=== PATIENT | male | born 1965 | race Caucasian/White ===

== ENCOUNTER 2020-06-12 16:24 | Inpatient (IN) | payer BC ==
[~2020-06-12] VITALS: Ht 182.9 cm; Wt 74.4 kg
[2020-06-12 16:26] VITALS: BP_SYST 159
[2020-06-12] MEDS ORDERED: levETIRAcetam 1,000 MG IV BAG 100 ML IV ONE (16:45)
[2020-06-12] MEDS ORDERED: LORazepam 2 MG/ML VIAL IVP ONE (16:45)
[2020-06-12 16:52] LABS: BASOPHILS % (AUTO) 0.6 % (0.0-2.0); EOSINOPHILS % (AUTO) 0.1 % (0.0-4.0); HEMATOCRIT 33.9 % (36-54); HEMOGLOBIN 11.2 g/dL (14.0-18.0); LYMPHOCYTES # (AUTO) 0.8 K/uL (1.0-5.5); LYMPHOCYTES % (AUTO) 11.4 % (20.5-51.5); MEAN CORPUSCULAR HEMOGLOBIN 29 pg (27-31); MEAN CORPUSCULAR HGB CONC 33 % (32-36); MEAN CORPUSCULAR VOLUME 88 fL (79.0-98.0); MONOCYTES # (AUTO) 0.2 K/uL (0.0-1.0); MONOCYTES % (AUTO) 2.9 % (1.7-9.3); NEUTROPHILS # (AUTO) 5.8 K/uL (1.8-7.7); PLATELET COUNT (AUTO) 172 K/uL (130-430); RED BLOOD CELL COUNT(AUTO) 3.85 MIL/uL (4.2-6.2); RED CELL DISTRIBUTION WIDTH 14.7 % (9.0-15.0); WHITE BLOOD COUNT (AUTO) 6.8 K/uL (4.8-10.8)
[2020-06-12] MEDS ORDERED: ERGO500020 PO (17:02)
[2020-06-12] MEDS ORDERED: MYCO500T PO (17:02)
[2020-06-12] MEDS ORDERED: DOCU-144 PO (17:02)
[2020-06-12] MEDS ORDERED: TACR1CAP7 PO (17:02)
[2020-06-12] MEDS ORDERED: THIA50TA10 PO (17:02)
[2020-06-12] MEDS ORDERED: NOR10 PO (17:02)
[2020-06-12] MEDS ORDERED: magnesium protein PO (17:02)
[2020-06-12] MEDS ORDERED: TACR0.5C PO (17:02)
[2020-06-12] MEDS ORDERED: LACO100T2 PO (17:02)
[2020-06-12] MEDS ORDERED: PRED5TAB PO (17:02)
[2020-06-12] MEDS ORDERED: URSO300C24 PO (17:02)
[2020-06-12] MEDS ORDERED: EVER1TAB PO (17:02)
[2020-06-12] MEDS ORDERED: MIDAZOLAM NS (17:02)
[2020-06-12] MEDS ORDERED: [UNRECOGNIZED DRUG - OTHER] (17:02)
[2020-06-12] MEDS ORDERED: OMEP40CA33 PO (17:02)
[2020-06-12] MEDS ORDERED: LEVE1000 PO (17:02)
[2020-06-12] MEDS ORDERED: METO25TA3 PO (17:02)
[2020-06-12] MEDS ORDERED: OSCD500 PO (17:02)
[2020-06-12] MEDS ORDERED: NEPH PO (17:02)
[2020-06-12 17:32] LABS: CALCIUM 9.5 mg/dL (8.4-11.0); CREATININE 2.23 mg/dL (0.55-1.30)
[2020-06-12 17:36] LABS: TOTAL BILIRUBIN 0.6 mg/dL (0.0-1.0)
[2020-06-12] MEDS ORDERED: LORazepam 2 MG/ML VIAL IVP PRN (19:30)
[2020-06-12] MEDS: LR 1,000 ML IV SCH (21:10)
[2020-06-12] MEDS: MYCOPHENOLATE MOFETIL 250 MG CAPSULE PO SCH (22:30)
[2020-06-12] MEDS ORDERED: EVEROLIMUS 2 MG PO SCH (22:30)
[2020-06-12] MEDS: URSODIOL 300 MG CAPSULE PO SCH (22:30)
[2020-06-12 23:03] VITALS: BP_SYST 162
[2020-06-12] MEDS: levETIRAcetam 500 MG TABLET PO SCH (23:41)
[2020-06-13 00:28] LABS: BILIRUBIN,URINE NEGATIVE (NEGATIVE); BLOOD, URINE NEGATIVE (NEGATIVE); CLARITY/URINE CLEAR (CLEAR); COLOR,URINE YELLOW (YELLOW); GLUCOSE,URINE NEGATIVE (NEGATIVE); KETONES,URINE NEGATIVE (NEGATIVE); LEUKOCYTE ESTERASE ,URINE NEGATIVE (NEGATIVE); NITRITE, URINE NEGATIVE (NEGATIVE); PROTEIN URINE NEGATIVE (NEGATIVE); UROBILINOGEN,URINE 0.2 (0.2-1.0)
[2020-06-13 00:43] LABS: BARBITURATE, URINE NEGATIVE (NEG <=200); BENZODIAZEPINE, URINE POSITIVE (NEG <=150); CANNABINOID, URINE NEGATIVE (NEG <=50); COCAINE, URINE NEGATIVE (NEG <=150); METHAMPHETAMINES SCREEN,URINE NEGATIVE (NEG <=500); OPIATE, URINE NEGATIVE (NEG <=100); PHENCYCLIDINE SCREEN,URINE NEGATIVE (NEG <=25); UR TRICYCLIC ANTIDEPRESSANTS NEGATIVE (NEG <=300); URINE AMPHETAMINE NEGATIVE (NEG <=500); URINE METHADONE NEGATIVE (NEG <=200); URINE OXYCODONE SCREEN NEGATIVE (NEG <=100); URINE PROPOXYPHENE SCREEN NEGATIVE (NEG <=300)
[2020-06-13] MEDS: LR 1,000 ML IV SCH (05:30)
[2020-06-13] MEDS ORDERED: PANTOPRAZOLE SODIUM 40 MG TAB PO SCH (07:00)
[2020-06-13] MEDS: levETIRAcetam 500 MG TABLET PO SCH (08:36)
[2020-06-13] MEDS: URSODIOL 300 MG CAPSULE PO SCH (08:38)
[2020-06-13] MEDS: MYCOPHENOLATE MOFETIL 250 MG CAPSULE PO SCH (08:39)
[2020-06-13] MEDS ORDERED: PREDNISONE 5 MG TABLET PO SCH (09:00)
[2020-06-13] MEDS ORDERED: NEPHROVITE, (FOLIC ACID/VITAMIN B COMP W-C 1 TAB) PO SCH (09:00)
[2020-06-13] MEDS ORDERED: CALCIUM CARBONATE/VITAMIN D3 1 TAB TABLET PO SCH (09:00)
[2020-06-13] MEDS ORDERED: LACOSAMIDE 100 MG TABLET PO SCH (09:00)
[2020-06-13] MEDS ORDERED: DOCUSATE SODIUM 100 MG CAPSULE PO SCH (09:00)
[2020-06-13] MEDS ORDERED: THIAMINE HCL 100 MG TABLET PO SCH (09:00)
[2020-06-13] MEDS ORDERED: METOPROLOL SUCCINATE 25 MG TAB.SR.24H (TOPROL XL) PO SCH (09:00)
[2020-06-13] MEDS ORDERED: TACROLIMUS ANHYDROUS 1 MG CAPSULE (PROGRAF) PO SCH (09:00)
[2020-06-13] MEDS ORDERED: OMEPRAZOLE Non-Formulary 20 MG CAPSULE.DR PO SCH (09:00)
[2020-06-13] MEDS ORDERED: amLODIPine BESYLATE 10 MG TABLET PO SCH (09:00)
[2020-06-13 09:13] LABS: BASOPHILS # (AUTO) 0.1 K/uL (0.0-0.2); BASOPHILS % (AUTO) 1.3 % (0.0-2.0); EOSINOPHILS # (AUTO) 0.1 K/uL (0.0-0.4); EOSINOPHILS % (AUTO) 1.1 % (0.0-4.0); HEMATOCRIT 32.3 % (36-54); LYMPHOCYTES # (AUTO) 1.7 K/uL (1.0-5.5); LYMPHOCYTES % (AUTO) 35.3 % (20.5-51.5); MEAN CORPUSCULAR HEMOGLOBIN 29 pg (27-31); MEAN CORPUSCULAR HGB CONC 34 % (32-36); MEAN CORPUSCULAR VOLUME 85 fL (79.0-98.0); MONOCYTES # (AUTO) 0.3 K/uL (0.0-1.0); MONOCYTES % (AUTO) 6.5 % (1.7-9.3); NEUTROPHILS # (AUTO) 2.7 K/uL (1.8-7.7); NEUTROPHILS % (AUTO) 55.8 % (40.0-70.0); PLATELET COUNT (AUTO) 134 K/uL (130-430); RED CELL DISTRIBUTION WIDTH 14.4 % (9.0-15.0); WHITE BLOOD COUNT (AUTO) 4.9 K/uL (4.8-10.8)
[2020-06-13 09:24] LABS: ALBUMIN 3.3 g/dL (3.4-4.8); CALCIUM 9.1 mg/dL (8.4-11.0); CREATININE 1.74 mg/dL (0.55-1.30); POTASSIUM 3.6 mmol/L (3.5-5.1); TOTAL BILIRUBIN 0.7 mg/dL (0.0-1.0)
[2020-06-13 10:24] VITALS: BP_SYST 158
[2020-06-13 12:16] VITALS: BP_SYST 141
[2020-06-13 13:33] VITALS: BP_SYST 158
[2020-06-13] MEDS ORDERED: TACROLIMUS ANHYDROUS 0.5 MG CAPSULE (PROGRAF) PO SCH (21:00)
== END 2020-06-13 14:30 | disposition home or self-care (01) | DRG 100 ==
LOC: SED 16:24 → EDBD 16:24 → STU 19:23
PROVIDERS: ADMIT Internal Medicine; ATTEND Internal Medicine
DX: G40.801 Other epilepsy, not intractable, with status epilepticus (principal); N17.0 Acute kidney failure with tubular necrosis; B17.9 Acute viral hepatitis, unspecified; E44.1 Mild protein-calorie malnutrition; Z94.4 Liver transplant status; K21.9 Gastro-esophageal reflux disease without esophagitis; R79.89 Other specified abnormal findings of blood chemistry; E86.0 Dehydration; I12.9 Hypertensive chronic kidney disease with stage 1 through stage 4 chronic kidney disease, or unspecified chronic kidney disease; N18.9 Chronic kidney disease, unspecified; D63.8 Anemia in other chronic diseases classified elsewhere; Z88.6 Allergy status to analgesic agent; Z79.899 Other long term (current) drug therapy; Z86.73 Personal history of transient ischemic attack (TIA), and cerebral infarction without residual deficits
CPT/HCPCS: 36415; 70450-TC; 80053; 80307; 81003; 85025; 93005; G0378; J1953; J7120; J7507; J7512; J7517

== ENCOUNTER 2020-11-16 23:05 | Inpatient (IN) | payer BC, SELFPAY ==
[~2020-11-16] VITALS: Ht 185.4 cm; Wt 82.6 kg
[2020-11-16 23:05] VITALS: BP_SYST 132
[~2020-11-16 23:05] MED LIST: DOCU-144 PO; ERGO500020 PO; EVER1TAB PO; LACO100T2 PO; LEVE1000 PO; METO25TA3 PO; MIDAZOLAM NS; MYCO500T PO; NEPH PO; NOR10 PO; OMEP40CA13 PO; OSCD500 PO; PRED5TAB PO; TACR0.5C PO; TACR1CAP7 PO; THIA50TA10 PO; URSO300C24 PO; [UNRECOGNIZED DRUG - OTHER]; magnesium protein PO
--- NOTE | 2020-11-16 23:05 | NUR ---
Placed in room 6. Placed on teletypesetter monitor, blood pressure machine and pulse oximeter. To gown for exam. Side rails up.
--- NOTE | 2020-11-16 23:05 | NUR ---
Seizure precautions in place. Seizure pads applied to gurney. Side rails up.
--- NOTE | 2020-11-16 23:06 | NUR ---
Patient was BIBA from home c/o witnessed tonic clonic seizure at home by . 911 was called and per EMS, witnessed focal seizure, looking to left and blinking. Pt is post ictal at this time. VSS. Blood sugar 109.
--- NOTE | 2020-11-16 23:22 | NUR ---
ER Dr. Avelar at bedside examining patient.
--- NOTE | 2020-11-16 23:35 | NUR ---
# 14 FR In and Out catheter with use of sterile technique. Immediate return of 300 ml yellow urine noted. Urine sample collected and sent to lab. Pt tolerated procedure 0. Patient unable to toilet self.
--- NOTE | 2020-11-16 23:36 | NUR ---
patient was able to speak; pt has scrambled communication. Attempted to reorient patient to person, time, and situation. ER MD made aware.
[2020-11-16 23:57] LABS: BILIRUBIN,URINE NEGATIVE (NEGATIVE); BLOOD, URINE NEGATIVE (NEGATIVE); CLARITY/URINE CLEAR (CLEAR); COLOR,URINE YELLOW (YELLOW); GLUCOSE,URINE NEGATIVE (NEGATIVE); KETONES,URINE NEGATIVE (NEGATIVE); LEUKOCYTE ESTERASE ,URINE NEGATIVE (NEGATIVE); NITRITE, URINE NEGATIVE (NEGATIVE); PROTEIN URINE NEGATIVE (NEGATIVE); UROBILINOGEN,URINE 0.2 (0.2-1.0)
[2020-11-17 00:06] LABS: CREATININE 2.04 mg/dL (0.55-1.30); POTASSIUM 3.7 mmol/L (3.5-5.1)
[2020-11-17 00:07] LABS: BASOPHILS # (AUTO) 0.1 K/uL (0.0-0.2); BASOPHILS % (AUTO) 1.1 % (0.0-2.0); EOSINOPHILS % (AUTO) 0.3 % (0.0-4.0); HEMATOCRIT 39.5 % (36-54); HEMOGLOBIN 13.6 g/dL (14.0-18.0); LYMPHOCYTES # (AUTO) 2.9 K/uL (1.0-5.5); LYMPHOCYTES % (AUTO) 36.6 % (20.5-51.5); MEAN CORPUSCULAR HEMOGLOBIN 28 pg (27-31); MEAN CORPUSCULAR HGB CONC 34 % (32-36); MEAN CORPUSCULAR VOLUME 82 fL (79.0-98.0); MONOCYTES # (AUTO) 0.5 K/uL (0.0-1.0); MONOCYTES % (AUTO) 6.5 % (1.7-9.3); NEUTROPHILS # (AUTO) 4.3 K/uL (1.8-7.7); NEUTROPHILS % (AUTO) 55.5 % (40.0-70.0); PLATELET COUNT (AUTO) 220 K/uL (130-430); RED BLOOD CELL COUNT(AUTO) 4.81 MIL/uL (4.2-6.2); RED CELL DISTRIBUTION WIDTH 14.4 % (9.0-15.0); WHITE BLOOD COUNT (AUTO) 7.8 K/uL (4.8-10.8)
[2020-11-17 00:12] LABS: ALBUMIN 4.4 g/dL (3.4-4.8); TOTAL BILIRUBIN 0.4 mg/dL (0.0-1.0)
--- NOTE | 2020-11-17 02:20 | NUR ---
Patient sleeping comfortably in bed. NO acute distress, will continue to monitor.
[2020-11-17] MEDS ORDERED: LORazepam 2 MG/ML VIAL ONE (02:36)
--- NOTE | 2020-11-17 02:37 | NUR ---
Witnessed patient having seizure approximately 3 minutes long. Called Charge nurse. Overrided 1mg of Ativan and administered IVP. Pt was placed on NRB at 15L. trauma noted to tongue. ER MD made aware.
--- NOTE | 2020-11-17 03:29 | NUR ---
Patient to CT in stable condition.
[2020-11-17] MEDS ORDERED: LORazepam 2 MG/ML VIAL IVP ONE (03:30)
--- NOTE | 2020-11-17 03:55 | NUR ---
Patient returned from CT in stable condition.
--- NOTE | 2020-11-17 03:57 | NUR ---
Spoke with , Tracey, in regards to patient's status. was given update on patient.
--- NOTE | 2020-11-17 05:26 | NUR ---
patient was cleaned and turned. Pt speaking gibberish. ER made aware.
--- NOTE | 2020-11-17 07:03 | NUR ---
Report recieved from GERALD Aguiar for continuation of care.
--- NOTE | 2020-11-17 07:03 | NUR ---
Report given to GERALD Dominguez. All care endorsed.
[2020-11-17] MEDS ORDERED: [UNRECOGNIZED DRUG - CODE] PO (07:06)
[2020-11-17] MEDS ORDERED: CEL250 PO (07:07)
[2020-11-17] MEDS ORDERED: PRED5TAB PO (07:08)
[2020-11-17] MEDS ORDERED: TACR0.5C PO (07:09)
[2020-11-17] MEDS ORDERED: TACR1CAP2 PO (07:09)
[2020-11-17] MEDS ORDERED: NOR10 PO (07:10)
[2020-11-17] MEDS ORDERED: CYCL-10 PO (07:11)
[2020-11-17] MEDS ORDERED: LISI-600 PO (07:13)
[2020-11-17] MEDS ORDERED: METO25TA3 PO (07:14)
[2020-11-17] MEDS ORDERED: FOLI0.8T2 PO ×2 (07:15→07:22)
--- NOTE | 2020-11-17 07:16 | NUR ---
Patient is able to answer questions correctly, but slowly. He has not complaints at this time.
[2020-11-17] MEDS ORDERED: THIA250T3 PO (07:17)
[2020-11-17] MEDS ORDERED: TRAM50TA2 PO (07:18)
[2020-11-17] MEDS ORDERED: URSO300C24 PO (07:19)
[2020-11-17] MEDS ORDERED: LACO150T2 PO (07:19)
--- NOTE | 2020-11-17 07:34 | NUR ---
Patient will be admitted to care of Dr. Toro. Admitted to telemetry unit. Waiting for room assignment. Belongings list completed. Complete and up to date summary report printed. SBAR report to be given at bedside with opportunity for questions.
[2020-11-17 07:47] LABS: ACETAMINOPHEN < 1 ug/mL (1-30); ALCOHOL, BLOOD < 3 mg/dL (<10)
[2020-11-17] MEDS: NACL 0.9% 1,000 ML IV SCH ×2 (07:55→21:07)
[2020-11-17] MEDS ORDERED: traMADol HCL HCL 50 MG TABLET (ULTRAM) PO PRN (10:30)
[2020-11-17] MEDS ORDERED: TACROLIMUS ANHYDROUS 0.5 MG CAPSULE (PROGRAF) PO SCH (10:30)
[2020-11-17] MEDS ORDERED: CYCLOBENZAPRINE HCL 10 MG TABLET (FLEXERIL) PO PRN (10:30)
--- NOTE | 2020-11-17 11:57 | NUR ---
DR HUGGINS AWARE OF ELEVATED TEMP. ORDERS RECEIVED
--- NOTE | 2020-11-17 12:05 | NUR ---
CALM, ALERT, RESP UNLABORED, SKIN WARM AND DRY. STATED FEELING BETTTER, TOLERATING PO WELL
--- NOTE | 2020-11-17 12:11 | NUR ---
Pt moved to hallway bed, tele and SpO2 monitoring in placed. No acute distress.
--- NOTE | 2020-11-17 12:58 | NUR ---
PONCHO TO ASSUEM CARE, CALM, ALERT, RESP UNLABORED, SKIN WARM AND DRY. CLEAR MENTATION AND SPEECH. C/O KNEE PAIN X 2 DAYS X-RAY, LABS COMPLETED
--- NOTE | 2020-11-17 14:06 | NUR ---
Contact Information: Please call Goyo Kirk at with updates.
[2020-11-17] MEDS ORDERED: [UNRECOGNIZED DRUG - OTHER] PO SCH (15:00)
--- NOTE | 2020-11-17 15:29 | NUR ---
Report given to GERALD Winter for continuation of care.
--- NOTE | 2020-11-17 15:38 | NUR ---
PONCHO TO ASSUME CARE, CALM, ALERT, SEIZURE PADS IN PLACE, NO DISTRESS. RESP UNLABORED.
[2020-11-17] MEDS: ursodioL 300 MG CAPSULE PO SCH ×2 (16:24→21:00)
--- NOTE | 2020-11-17 16:28 | NUR ---
SR NO ECTOPY, RESP UNLABORED, TOLERATING PO WELL
--- NOTE | 2020-11-17 19:30 | NUR ---
SLEEPING, RESP UNLABORED, SKIN WARM AND DRY. COMMUNICATES CLEARLY NORMOTENSIVE, VSS.
[2020-11-17] MEDS: TACROLIMUS ANHYDROUS 1 MG CAPSULE (PROGRAF) PO SCH (21:06)
[2020-11-17] MEDS: DOCUSATE SODIUM 100 MG CAPSULE PO SCH (21:06)
[2020-11-17] MEDS: levETIRAcetam 500 MG TABLET PO SCH (21:07)
--- NOTE | 2020-11-17 21:58 | NUR ---
Patient will be admitted to care of . Admitted to unit. Will go to room . Belongings list completed. Complete and up to date summary report printed. SBAR report to be given at bedside with opportunity for questions.
--- NOTE | 2020-11-17 22:30 | NUR ---
ADMIT NOTE Received pt from ER to the floor with a diagnosis of uncontrolled seizures, persistent altered mental status . Admission process initiated. patient oriented to pain management, safety and call light-teach back done.
[2020-11-17 22:40] VITALS: BP_SYST 149
[2020-11-17 23:11] LABS: BARBITURATE, URINE NEGATIVE (NEG <=200); BENZODIAZEPINE, URINE NEGATIVE (NEG <=150); CANNABINOID, URINE NEGATIVE (NEG <=50); COCAINE, URINE NEGATIVE (NEG <=150); METHAMPHETAMINES SCREEN,URINE NEGATIVE (NEG <=500); OPIATE, URINE NEGATIVE (NEG <=100); PHENCYCLIDINE SCREEN,URINE NEGATIVE (NEG <=25); UR TRICYCLIC ANTIDEPRESSANTS NEGATIVE (NEG <=300); URINE AMPHETAMINE NEGATIVE (NEG <=500); URINE METHADONE NEGATIVE (NEG <=200); URINE OXYCODONE SCREEN NEGATIVE (NEG <=100); URINE PROPOXYPHENE SCREEN NEGATIVE (NEG <=300)
--- NOTE | 2020-11-17 23:50 | NUR ---
PAGED PAGED DOCTOR HUGGINS FOR ORDERS
--- NOTE | 2020-11-17 23:54 | NUR ---
SPOKE WITH DR. HUGGINS FOR DIET ORDERS SHE ADVISED TO CHANGE PATIENT FROM NPO TO SOFT DIET. ALSO GAVE ORDERS FOR PRN ATIVAN FOR SEIZURE CONTROL. WILL ENTER ORDERS GIVEN.
[2020-11-18] VITALS: BP_SYST 141
[2020-11-18] MEDS ORDERED: LORazepam 2 MG/ML VIAL IVP PRN
[2020-11-18] MEDS: LACOSAMIDE 100 MG TABLET PO SCH ×2 (00:06→09:27)
--- NOTE | 2020-11-18 00:24 | NUR ---
CONSULTATION PAGED/CALLED Reason for Consultation: SEIZURES Person Who was Notified: DR. WILSON Consulting Physician: DR WILSON [employer] Specialty: Ordering Physician:JOSELUIS
--- NOTE | 2020-11-18 01:00 | NUR ---
RN ROUNDS: Patient is laying in bed with no s/s of distress or discomfort. He appears to be asleep. Seizure pads are in place.
--- NOTE | 2020-11-18 01:00 | NUR ---
CONSULTATION PAGED/CALLED Reason for Consultation: RENAL DYSFUNCTION Person Who was Notified: DR BLANCO ALREADY HAS SEEN PT Consulting Physician: FRANCIS [employer]ung[employer] Specialty: [ Ordering Physician: JOSELUIS
--- NOTE | 2020-11-18 07:38 | NUR ---
CLOSING NOTES: Patient is laying in bed, in stable condition. There was no seizure activity since admission. Ensured all safety precautions. Bed is in the lowest position with alarm on and call light within reach. I have endorsed care to dayshift nurse.
[2020-11-18 08:00] VITALS: BP_SYST 150
[2020-11-18] MEDS ORDERED: predniSONE 5 MG TABLET PO SCH (08:00)
[2020-11-18 08:10] LABS: ALBUMIN 3.4 g/dL (3.4-4.8); CALCIUM 8.8 mg/dL (8.4-11.0); CREATININE 1.4 mg/dL (0.55-1.30); POTASSIUM 3.4 mmol/L (3.5-5.1); THYROID STIMULATING HORMONE 0.95 uIu/mL (0.36-3.74); TOTAL BILIRUBIN 1.1 mg/dL (0.0-1.0)
[2020-11-18 08:18] LABS: BASOPHILS # (AUTO) 0.1 K/uL (0.0-0.2); BASOPHILS % (AUTO) 0.8 % (0.0-2.0); EOSINOPHILS % (AUTO) 0.5 % (0.0-4.0); HEMATOCRIT 35.7 % (36-54); HEMOGLOBIN 12.1 g/dL (14.0-18.0); LYMPHOCYTES # (AUTO) 1.5 K/uL (1.0-5.5); LYMPHOCYTES % (AUTO) 22.8 % (20.5-51.5); MEAN CORPUSCULAR HEMOGLOBIN 27 pg (27-31); MEAN CORPUSCULAR HGB CONC 34 % (32-36); MEAN CORPUSCULAR VOLUME 80 fL (79.0-98.0); MONOCYTES # (AUTO) 0.5 K/uL (0.0-1.0); MONOCYTES % (AUTO) 8.3 % (1.7-9.3); NEUTROPHILS # (AUTO) 4.3 K/uL (1.8-7.7); NEUTROPHILS % (AUTO) 67.6 % (40.0-70.0); PLATELET COUNT (AUTO) 140 K/uL (130-430); RED BLOOD CELL COUNT(AUTO) 4.43 MIL/uL (4.2-6.2); RED CELL DISTRIBUTION WIDTH 14.2 % (9.0-15.0); WHITE BLOOD COUNT (AUTO) 6.4 K/uL (4.8-10.8)
[2020-11-18] MEDS: ursodioL 300 MG CAPSULE PO SCH ×2 (09:00→14:23)
[2020-11-18] MEDS ORDERED: amLODIPine BESYLATE 10 MG TABLET PO SCH (09:00)
[2020-11-18] MEDS ORDERED: THIAMINE HCL 100 MG TABLET PO SCH (09:00)
[2020-11-18] MEDS ORDERED: METOPROLOL SUCCINATE 25 MG TAB.SR.24H (TOPROL XL) PO SCH (09:00)
[2020-11-18] MEDS ORDERED: NEPHROVITE, (FOLIC ACID/VITAMIN B COMP W-C 1 TAB) PO SCH ×2 (09:00)
[2020-11-18] MEDS ORDERED: PANTOPRAZOLE SODIUM 40 MG TAB PO SCH (09:00)
[2020-11-18] MEDS ORDERED: lisinopriL 20 MG TABLET PO SCH (09:00)
[2020-11-18] MEDS ORDERED: predniSONE 10 MG TABLET ONE (09:14)
[2020-11-18] MEDS ORDERED: POTASSIUM CHLORIDE 20 MEQ TAB.PRT.SR PO ONE (09:15)
[2020-11-18] MEDS ORDERED: PANTOPRAZOLE SODIUM 40 MG TAB ONE (09:15)
[2020-11-18] MEDS: TACROLIMUS ANHYDROUS 1 MG CAPSULE (PROGRAF) PO SCH (09:26)
[2020-11-18] MEDS: levETIRAcetam 500 MG TABLET PO SCH (09:27)
[2020-11-18] MEDS: DOCUSATE SODIUM 100 MG CAPSULE PO SCH (09:28)
[2020-11-18] MEDS: NACL 0.9% 1,000 ML IV SCH (09:37)
--- NOTE | 2020-11-18 09:57 | NUR ---
Nutrition Update Maurizio Scale 18 noted. Pt admitted for uncontrolled seizure, persistent altered mental status. Diet: soft (low fiber/bland) BMI: 24 kg/m2 RD to follow per nutrition care standards.
--- NOTE | 2020-11-18 10:10 | NUR ---
alert, oriented, but " very sleepy, just want to be left alone, got interrupted too much. Ate some of his breakfast, fell back to sleep, after all meds taken by mouth K+ 20meq po given (K+ 3.4)
[2020-11-18 12:00] VITALS: BP_SYST 142
[2020-11-18 14:48] VITALS: BP_SYST 142
[2020-11-18 16:00] VITALS: BP_SYST 138
--- NOTE | 2020-11-18 16:48 | NUR ---
NEUROLOGIST DR WILSON WAS CALLED RE: THE PT'S REQUEST TO TALK TO HIM. SPOKE TO PK. ALSO LEFT A VOICE MESSAGE ON HIS CELL PHONE TOO.
--- NOTE | 2020-11-18 16:49 | NUR ---
notified , Tracey, , and asked her what time she can hop picker the patient. She is very calm, polite and quite concerned about the patient's recent seizure at home, " which was very scary". She did ask author to read the neurologist's today notes, done She wants to talk to the neurologist on the phone, which we have to call him and left a message. Concerning the today's discharge, she is not certain that she wants him to get discharged that quick.
--- NOTE | 2020-11-18 18:19 | NUR ---
message relayed to the neurologist, and after the conversation with him, author contacted the , " per conversation with Neurologist, my is fine to go home, picked up at 1800 by family, patietn is alert, oriented, and very appropriate. discharged to home.
[2020-11-19 05:06] LABS: HEPATITIS A AB, IgM Negative (Negative); HEPATITIS B CORE AB, IgM Negative (Negative); HEPATITIS B SURFACE AG Negative (Negative)
== END 2020-11-18 18:05 | disposition home or self-care (01) | DRG 101 ==
LOC: SED 23:05 → STU 11-17 07:31
PROVIDERS: ADMIT Internal Medicine; ATTEND Internal Medicine
DX: G40.409 Other generalized epilepsy and epileptic syndromes, not intractable, without status epilepticus (principal); N17.9 Acute kidney failure, unspecified; E86.0 Dehydration; Z20.828 Contact with and (suspected) exposure to other viral communicable diseases; K21.9 Gastro-esophageal reflux disease without esophagitis; I12.9 Hypertensive chronic kidney disease with stage 1 through stage 4 chronic kidney disease, or unspecified chronic kidney disease; N18.9 Chronic kidney disease, unspecified; Z88.6 Allergy status to analgesic agent; Z88.7 Allergy status to serum and vaccine; Z88.8 Allergy status to other drugs, medicaments and biological substances; Z79.899 Other long term (current) drug therapy
CPT/HCPCS: 36415; 70450-TC; 71045; 76376; 76700-TC; 80053; 80074; 80307; 81003; 82140-TC; 82542; 82962; 83690-TC; 83880; 84443-TC; 85025; 93005; 96374; 99291; 99292; G0378; G0480; G0481; G0482; J2060; J7507; J7512